=== PATIENT | male | born 1995 | race Caucasian/White ===

== ENCOUNTER 2017-01-08 14:16 | Emergency (ER) | payer OTHER ==
[2017-01-08 15:20] LABS: ABSOLUTE BASOPHILS # (AUTO) 0.1 10^3/uL (0.0-0.2); ABSOLUTE EOSINOPHILS # (AUTO) 0.4 10^3/uL (0.0-0.6); ABSOLUTE LYMPHOCYTES (AUTO) 2.3 10^3/uL (0.5-4.7); ABSOLUTE MONOCYTES (AUTO) 0.6 10^3/uL (0.1-1.4); ABSOLUTE NEUT (AUTO) 4.7 10^3/uL (1.7-8.2); BASOPHILS % (AUTO) 1.2 % (0-2); EOSINOPHILS % (AUTO) 5.4 % (0-6); HEMATOCRIT 48.5 % (37.9-51.0); HEMOGLOBIN 16.7 g/dL (13.5-17.0); HGB HCT DIFFERENCE 1.6; LYMPHOCYTES % (AUTO) 28.2 % (13-45); MEAN CORPUSCULAR HEMOGLOBIN 30.8 pg (27.0-33.4); MEAN CORPUSCULAR HGB CONC 34.4 g/dL (32.0-36.0); MEAN CORPUSCULAR VOLUME 90 fl (80-97); MONOCYTES % (AUTO) 7.1 % (3-13); RED BLOOD COUNT 5.42 10^6/uL (4.35-5.55); RED CELL DISTRIBUTION WIDTH 13.2 % (11.5-14.0); SEGMENTED NEUTROPHILS % (AUTO) 58.1 % (42-78); WHITE BLOOD COUNT 8.1 10^3/uL (4.0-10.5)
[2017-01-08 15:39] LABS: ALANINE AMINOTRANSFERASE 33 U/L (21-72); ALBUMIN 4.4 g/dL (3.5-5.0); ALKALINE PHOSPHATASE 74 U/L (38-126); ANION GAP 14 (5-19); ASPARTATE AMINO TRANSFERASE 15 U/L (17-59); BILIRUBIN,DIRECT 0.3 mg/dL (0.0-0.4); BILIRUBIN,TOTAL 0.9 mg/dL (0.2-1.3); BLOOD UREA NITROGEN 12 mg/dL (7-20); CALCIUM 9.9 mg/dL (8.4-10.2); CARBON DIOXIDE 22 mmol/L (22-30); CHLORIDE 106 mmol/L (98-107); CREATININE RESULT 0.97 mg/dL (0.52-1.25); GLUCOSE 93 mg/dL (75-110); SODIUM 142.4 mmol/L (137-145); TOTAL PROTEIN 7.5 g/dL (6.3-8.2)
[2017-01-08 15:46] LABS: ALCOHOL < 10 mg/dL (NONE DETECTED)
[2017-01-08 17:18] LABS: AMORPHOUS SEDIMENT,URINE TRACE /HPF; APPEARANCE,URINE TURBID; BILIRUBIN,URINE SMALL (NEGATIVE); GLUCOSE, URINE NEGATIVE (NEGATIVE); KETONES,URINE 20 mg/dL (NEGATIVE); LEUKOCYTE ESTERASE,URINE NEGATIVE (NEGATIVE); NITRITE,URINE NEGATIVE (NEGATIVE); PROTEIN,URINE 30 mg/dL (NEGATIVE); URINE SPECIFIC GRAVITY 1.034
[2017-01-08 17:30] LABS: URINE BARBITURATES SCREEN NEGATIVE; URINE METHADONE SCREEN NEGATIVE; URINE OPIATES LOW NEGATIVE; URINE PHENCYCLIDINE SCREEN NEGATIVE
--- NOTE | 2017-01-08 17:50 | PSYCHOLOGICAL NOTE ---
Psych Note - Psych Note Psych Note: pt presents via EMS with reports of suicide attempt after ingesting 5 tylenol extra strength and drinkin 1/2 qt of Captarabella Rai. Suicide note found at resident: "Everyone, If you're reading this, then that means I finallly gave up and took the esasy way out of all of this. I guess we aren'tas invincible as we think we are. I'm so sorry for all this but I'm gonna be going to my brother and I'll be ok I promise that. To Pennie, I'm sorry I wasnt good enough, Im sorry I couldnt be better and most of all, Im sorry for hurting you so deeply. I shouldve been more understanding and shouldve gicen you what you asked for, but now youll be ok without me in the way. It's my time to go now and I wish you all the best. Again, Im so sorry.... P.S. If you get a chance, call Pennie and let her know that I finall left to be with my brother. she'll understand my passcode is [id number]. 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
--- NOTE | 2017-01-08 18:53 | ER Document Report ---
ED General - General Chief Complaint: Psych Problem Stated Complaint: PSYCH EVALUATION Time Seen by Provider: 01/08/17 14:26 Mode of Arrival: Medic Information source: Patient Notes: 21-year-old male presents after a suicide attempt. Patient notes at 11 AM he took approximately 7-8 extra strength Tylenols. Patient denies any fevers or chills. Patient does not remember this episode, denies any previous suicide attempts. Patient did drink half a bottle of Captain Fredi and did write out a suicide note - HPI Onset: Just prior to arrival Onset/Duration: Sudden Quality of pain: No pain Severity: Mild Pain Level: Denies Associated symptoms: None Exacerbated by: Denies Relieved by: Denies Similar symptoms previously: No Recently seen / treated by doctor: No - Related Data Allergies/Adverse Reactions: No Known Allergies Allergy (Unverified 01/08/17 16:42) Past Medical History - Social History Smoking Status: Current Every Day Smoker Cigarette use (# per day): Yes Chew tobacco use (# tins/day): No Smoking Education Provided: No Frequency of alcohol use: Heavy Drug Abuse: None Family History: Reviewed & Not Pertinent Patient has suicidal ideation: Yes Patient has homicidal ideation: No Surgical Hx: Negative - Immunizations Hx Diphtheria, Pertussis, Tetanus Vaccination: Yes Review of Systems - Review of Systems Notes: REVIEW OF SYSTEMS: CONSTITUTIONAL : Denies fever, chills, or sweats. Denies recent illness. EENT: Denies eye, ear, throat, or mouth pain or symptoms. Denies nasal or sinus congestion or discharge. Denies throat, tongue, or mouth swelling or difficulty swallowing. CARDIOVASCULAR: Denies chest pain. Denies palpitations or racing or irregular heart beat. Denies ankle edema. RESPIRATORY: Denies cough, cold, or chest congestion. Denies shortness of breath, difficulty breathing, or wheezing. GASTROINTESTINAL: Denies abdominal pain or distention. Denies nausea, vomiting , or diarrhea. Denies blood in vomitus, stools, or per rectum. Denies black, tarry stools. Denies constipation. GENITOURINARY: Denies difficulty urinating, painful urination, burning, frequency, blood in urine, or discharge. MUSCULOSKELETAL: Denies back or neck pain or stiffness. Denies joint pain or swelling. SKIN: Denies rash, lesions or sores. HEMATOLOGIC : Denies easy bruising or bleeding. LYMPHATIC: Denies swollen, enlarged glands. NEUROLOGICAL: Denies confusion or altered mental status. Denies passing out or loss of consciousness. Denies dizziness or lightheadedness. Denies headache. Denies weakness or paralysis or loss of use of either side. Denies problems with gait or speech. Denies sensory loss, numbness, or tingling. Denies seizures. PSYCHIATRIC: Admits to suicidal ideation ALL OTHER SYSTEMS REVIEWED AND NEGATIVE. Dictation was performed using WIDIP voice recognition software PHYSICAL EXAMINATION: GENERAL: Well-appearing, well-nourished and in no acute distress. HEAD: Atraumatic, normocephalic. EYES: Pupils equal round and reactive to light, extraocular movements intact, sclera anicteric, conjunctiva are normal. ENT: Nares patent, oropharynx clear without exudates. Moist mucous membranes. NECK: Normal range of motion, supple without lymphadenopathy LUNGS: Breath sounds clear to auscultation bilaterally and equal. No wheezes rales or rhonchi. HEART: Regular rate and rhythm without murmurs ABDOMEN: Soft, nontender, nondistended abdomen. No guarding, no rebound. No masses appreciated. Musculoskeletal: Normal range of motion, no pitting or edema. No cyanosis. NEUROLOGICAL: Cranial nerves grossly intact. Normal speech, normal gait. Normal sensory, motor exams PSYCH: Flat affect SKIN: Warm, Dry, normal turgor, no rashes or lesions noted. Physical Exam - Vital signs Vitals: Temp Pulse Resp BP Pulse Ox 98.1 F 73 16 152/88 H 97 01/08/17 15:31 01/08/17 15:31 01/08/17 15:31 01/08/17 15:31 01/08/17 15:31 Course - Re-evaluation Re-evalutation: 01/08/17 18:52 4 hour level was noted to be 30, this is a nonlethal dose however it does appear patient did attempt to overdose. I spoke with Dr. Mccall who will accept patient for transfer Patient medically stable awaiting transport by his unit - Vital Signs Vital signs: Temp Pulse Resp BP Pulse Ox 97.9 F 90 20 124/70 97 01/08/17 18:37 01/08/17 18:37 01/08/17 18:37 01/08/17 18:37 01/08/17 18:37 - Laboratory Result Diagrams: 01/08/17 15:00 01/08/17 15:00 Laboratory results interpreted by me: 01/08/17 01/08/17 15:00 16:00 AST 15 L Urine Protein 30 H Urine Ketones 20 H Urine Bilirubin SMALL H Urine Urobilinogen 2.0 H Salicylates < 1.0 L - EKG Interpretation by Me EKG shows normal: Sinus rhythm, [place], Intervals, QRS Complexes Discharge - Discharge Clinical Impression: Suicidal behavior Qualifiers: Attempted self-injury: without attempted self-injury Qualified Code(s): R46.89 - Other symptoms and signs involving appearance and behavior Poisoning by acetaminophen Qualifiers: Encounter type: initial encounter Injury intent: intentional self-harm Qualified Code(s): T39.1X2A - Poisoning by 4-Aminophenol derivatives, intentional self-harm, initial encounter Condition: Stable Disposition: [facility]
[2017-01-08 19:44] VITALS: BP 134/74
--- NOTE | 2017-01-09 09:24 | EKG REPORT ---
SEVERITY:- BORDERLINE ECG - SINUS RHYTHM PROBABLE LEFT ATRIAL ABNORMALITY : Confirmed by: Briseida Wynn 09-Jan-2017 09:23:31
== END 2017-01-08 20:00 ==
LOC: ER 14:16
DX: T39.1X2A Poisoning by 4-Aminophenol derivatives, intentional self-harm, initial encounter (principal); F17.210 Nicotine dependence, cigarettes, uncomplicated; R46.89 Other symptoms and signs involving appearance and behavior
CPT/HCPCS: 36415; 80053; 80307; 81001; 85025; 93005; 93010; 99285

== ENCOUNTER 2017-09-08 01:43 | Emergency (ER) | payer OTHER ==
[2017-09-08] MEDS ORDERED: LORAZEPAM INJ 2 MG/1 ML VIAL IV ONE (01:56)
[2017-09-08] MEDS ORDERED: NORMAL SALINE 1000 ML 1,000 ML IV ONE (02:04)
--- NOTE | 2017-09-08 02:31 | ER Document Report ---
ED General - General TRAVEL OUTSIDE OF THE [place] IN LAST 30 DAYS: No <ELIN STOKES - Last Filed: 09/08/17 05:52> <KRISTIE JACKSON - Last Filed: 09/08/17 09:37> <CINDI SCHREIBER - Last Filed: 09/08/17 09:50> - General Chief Complaint: Probable Seizure Stated Complaint: POSSIBLE SEIZURE Time Seen by Provider: 09/08/17 01:56 Notes: Patient is a 21-year-old male presents with complaint of possible seizure. Patient was at a bar was emotionally upset and then started having seizure-like activity. His roommates were with him at the bar. They helped him down to the floor. He said he did not hit his head or have any trauma to his head or neck. He said that then placed him on a side called ambulance. When into the room the patient starts asking for his girlfriend "ju". I then told him that she is not here. Patient then starts having a pseudoseizure like activity where he starts shaking all over and and having erratic breathing; however, he is able to talk to me during this episode and when I ask him for stories number he is able to stop all the shaking and then give me her phone number and asked me to call her to see if she will come to the bedside. Patient is obviously having a pseudoseizure due to her emotional distress. Patient's remains to come the bedside and told me that he does not have previous history of seizures. Says he does have a previous history of depression but is not currently been suicidal. Said he has been through a lot recently with the loss of 1 of his parents and also the recent breakup with his girlfriend. I did call his girlfriend. She does inform me that he had recently breakup. She says that she cannot come to the ER but would be happy to talk to him on the phone to help calm him down. Patient's roommates say that he was not involved in any drug abuse. He said the only thing he did tonight was alcohol. He said he did drink a large amount of alcohol. (ELIN STOKES) - Related Data Allergies/Adverse Reactions: No Known Allergies Allergy (Unverified 01/08/17 16:42) Past Medical History - Social History Smoking Status: Unknown if Ever Smoked Frequency of alcohol use: Occasional Drug Abuse: None Family History: Reviewed & Not Pertinent Patient has suicidal ideation: No Patient has homicidal ideation: No Renal/ Medical History: Denies: Hx Peritoneal Dialysis - Immunizations Hx Diphtheria, Pertussis, Tetanus Vaccination: Yes <ELIN STOKES - Last Filed: 09/08/17 05:52> Review of Systems - Review of Systems -: Yes ROS unobtainable due to patient's medical condition - History is limited due to patient having pseudoseizure and the panic attack <ELIN STOKES - Last Filed: 09/08/17 05:52> Physical Exam <ELIN STOKES - Last Filed: 09/08/17 05:52> <KRISTIE JACKSON - Last Filed: 09/08/17 09:37> <CINDI SCHREIBER - Last Filed: 09/08/17 09:50> - Vital signs Vitals: Resp Pulse Ox 26 H 100 09/08/17 01:47 09/08/17 01:47 - Notes Notes: General Appearance: Patient goes from being unresponsive to me being able to wake him up and answer a few questions. Patient becomes upset he starts having erratic type breathing and intermittent shaking of his body is not consistent with a seizure. Patient is able to immediately stop the shaking give me information such as girlfriend's number and and asks me to call her to have her come to the bedside. Vitals: reviewed, See vital signs table. Head: no swelling or tenderness to the head Eyes: PERRL, EOMI, Conjuctiva clear Mouth: No decreasd moisture. No tongue biting. Throat: No tonsillar inflammation, No airway obstruction, No lymphadenopathy Lungs: No wheezing, No rales, No rhonci, No accessory muscle use, good air exchange bilaterally. Heart: Normal rate, Regular rythm, No murmur, no rub Abdomen: Normal BS, soft, No rigidity, No abdominal tenderness, No guarding, no rebound, no abdominal masses, no organomegaly Extremities: strength 5/5 in all extremities, good pulses in all extremities, no swelling or tenderness in the extremities, no edema. Skin: warm, dry, appropriate color, no rash Neuro: Patient has intermittent episodes of tremors with erratic breathing. He is able to answer some questions. Cranial nerves II through XII are intact. Full neuro exam is limited due to the fact that the patient is very panicky at this time and emotionally upset. (ELIN STOKES) Course - Laboratory Result Diagrams: 09/08/17 01:55 09/08/17 01:55 <ELIN STOKES - Last Filed: 09/08/17 05:52> - Laboratory Result Diagrams: 09/08/17 01:55 09/08/17 01:55 <KRISTIE JACKSON - Last Filed: 09/08/17 09:37> - Laboratory Result Diagrams: 09/08/17 01:55 09/08/17 01:55 <CINDI SCHREIBER - Last Filed: 09/08/17 09:50> - Re-evaluation Re-evalutation: 09/08/17 05:52 Patient had another pseudoseizure. Again this jolting thrashing is not consistent with regular seizure. He has panicky type breathing and then will voluntarily throw his chest forward several times. This appears very voluntary. I explained to the girl in the room that this is a result of his anxiety and panic. Approximately hour prior to this episode I did talk to the patient. The girl that is in the room with him came out saying that she felt that he needs to stay to see psychiatry. She says that tonight he told her that he was suicidal. Patient himself says he may set this up he does not remember. Patient currently says is not suicidal but does agree to stay and see psychiatry. Patient is not on involuntary commitment paperwork. I personally do not think the patient is suicidal. Patient is medically stable for psychiatric evaluation. CT scan was obtained the patient does not have a headache and was fully awake and alert and acting appropriately. He has no focal neurologic deficits on exam. He looks well. He had no trauma to his head. His seizures consistent with that of pseudoseizure not consistent with true epilepsy. 09/08/17 05:55 (ELIN STOKES) - Vital Signs Vital signs: Temp Pulse Resp BP Pulse Ox 97.9 F 15 123/90 H 97 09/08/17 06:08 09/08/17 05:01 09/08/17 05:00 09/08/17 05:01 - Laboratory Laboratory results interpreted by me: 09/08/17 01:55 RDW 14.3 H Discharge <ELIN STOKES - Last Filed: 09/08/17 05:52> <KRISTIE JACKSON - Last Filed: 09/08/17 09:37> <CINDI SCHREIBER - Last Filed: 09/08/17 09:50> - Discharge Clinical Impression: Pseudoseizure Depression Qualifiers: Depression Type: unspecified Qualified Code(s): F32.9 - Major depressive disorder, single episode, unspecified Condition: Stable Disposition: HOME, SELF-CARE Additional Instructions: Anxiety The physician feels that some of your health problems are being caused by anxiety. Anxiety affects your health in many ways. Anxiety alone can cause palpitations, sweats, chest pains, abdominal pains, shortness of breath, and headaches. It contributes to ulcer disease, high blood pressure, irritable bowel syndrome, and has been shown to cause flare-ups of many other diseases. Anxiety is not a simple disorder to treat. If the anxiety is due to recent life stresses, you may simply need time to "work through" the changes. If the anxiety is due to an underlying unhappiness with yourself or due to psychiatric disturbance, professional help will be needed. Your physician can refer you for further help if needed. Anti-anxiety medication is occasionally given if the stress is acute or if you are having trouble sleeping. Chronic or frequent use of these medications is not a good idea because the body becomes reliant on it, preventing you from dealing with life's normal stresses. DEPRESSION: Your evaluation reveals that you have mental depression. While symptoms may be vague, they often include disturbance of sleep, fatigue, loss of appetite , and general loss of interest in life. While depression may be a side effect of drugs, or a reaction to a major change in your life, many cases have no known cause. If depression is acute, and related to a major loss in your life, you can expect it to clear completely with time. If you have been depressed a long time , are prone to repeated bouts of depression or low mood, or have been thinking of suicide, get help. Depression can be treated with anti-depressant medication and counselling. Long-term depression will often take a few weeks to clear, even with appropriate medication. Follow-up care is important. FOLLOW-UP CARE: [facility] for continued [facility].~ If you experience worsening or a significant change in your symptoms, notify the physician immediately or return to the Emergency Department at any time for re-evaluation. Referrals: [facility] [Provider Group] - 09/09/17
[2017-09-08 02:35] LABS: ABSOLUTE BASOPHILS # (AUTO) 0.1 10^3/uL (0.0-0.2); ABSOLUTE EOSINOPHILS # (AUTO) 0.1 10^3/uL (0.0-0.6); ABSOLUTE LYMPHOCYTES (AUTO) 2.7 10^3/uL (0.5-4.7); ABSOLUTE MONOCYTES (AUTO) 0.6 10^3/uL (0.1-1.4); ABSOLUTE NEUT (AUTO) 5.4 10^3/uL (1.7-8.2); EOSINOPHILS % (AUTO) 0.9 % (0-6); HEMATOCRIT 46.7 % (37.9-51.0); HEMOGLOBIN 16.2 g/dL (13.5-17.0); LYMPHOCYTES % (AUTO) 30.2 % (13-45); MEAN CORPUSCULAR HEMOGLOBIN 30.5 pg (27.0-33.4); MEAN CORPUSCULAR HGB CONC 34.8 g/dL (32.0-36.0); MEAN CORPUSCULAR VOLUME 88 fl (80-97); MONOCYTES % (AUTO) 6.6 % (3-13); PLATELET COUNT 286 10^3/uL (150-450); RED BLOOD COUNT 5.33 10^6/uL (4.35-5.55); RED CELL DISTRIBUTION WIDTH 14.3 % (11.5-14.0); SEGMENTED NEUTROPHILS % (AUTO) 61.3 % (42-78); TOTAL CELLS COUNTED % (AUTO) 100 %; WHITE BLOOD COUNT 8.9 10^3/uL (4.0-10.5)
[2017-09-08 02:45] LABS: ALCOHOL 118 mg/dL (NONE DETECTED); ANION GAP 16 (5-19); BLOOD UREA NITROGEN 10 mg/dL (7-20); CALCIUM 10.2 mg/dL (8.4-10.2); CARBON DIOXIDE 22 mmol/L (22-30); CHLORIDE 107 mmol/L (98-107); GLUCOSE 93 mg/dL (75-110); POTASSIUM 4.1 mmol/L (3.6-5.0)
[2017-09-08 02:54] LABS: URINE AMPHETAMINES SCREEN NEGATIVE; URINE BARBITURATES SCREEN NEGATIVE; URINE BENZODIAZEPINES SCREEN UNCONFIRMED POSITIVE; URINE COCAINE SCREEN NEGATIVE; URINE MARIJUANA (THC) SCREEN NEGATIVE; URINE METHADONE SCREEN NEGATIVE; URINE PHENCYCLIDINE SCREEN NEGATIVE
[2017-09-08] MEDS ORDERED: LORAZEPAM INJ 2 MG/1 ML VIAL ONE (05:51)
--- NOTE | 2017-09-08 08:48 | PSYCHOLOGICAL NOTE ---
Psych Note - Psych Note Psych Note: Reason for consult: pseudoseizure like activity from Anxiety/Stress Consent Permissions: Friend, Radha, at bedside per patient's request Pt presents to ED with a c/c of seizures via EMS. Per EMS pt was at a bar and was found on the floor having a seizure. Pt had a seizure while in the ambulance. Pt was given 5 mg of dilantin by EMS. Upon arrival pt shaking and mumbling. Pt unable to tell me his location but stated he need "stormy" his ex girlfriend. Patient disclosed he does not remember how he arrived to [facility] however states he is here because "really severe panic attacks." Patient states this never happened before. He denies suicidal ideation. Patient's psychosocial trigger to current event was the recent loss of a parent and breaking up with his girlfriend. Patient admits to previous episode of depression which resulted in a suicide attempt in January. Patient states he was inpatient for approximately 72 hours. He disclosed his attempt was "to drown myself with alcohol." Patient denies following up with outpatient mental health treatment. Patient denies taking any medications. Patient does [facility] Clinician discussed patient's alcohol use: Patient agrees that alcohol plays a part in his emotional events. Patient stated after his inpatient treatment he did not think he needed to continue outpatient treatment; however, agrees it would be "a good idea" to receive outpatient therapeutic services now. Patient is alert and orientated to person, place, time and circumstance. Mood is euthymic with congruent affect as evidenced by smiling and engaging with clinician. Patient denies suicidal and homicidal ideation. Delusions are absent behaviors congruent with intact reality based presentation i.e. organized , linear, rational thinking. Eye contact was well-maintained. Conversational speech was within normal rate, tone and prosody. Intellectual abilities appear to be within the average range. Attention and concentration are good. Insight , judgment, impulse control are fair. [facility]. Patient has not been seen by Mental Health. [facility] Chart Review: Attending evening physician noted Patient then starts having a pseudoseizure like activity where he starts shaking all over and and having erratic breathing; however, he is able to talk to me during this episode and when I ask him for stories number he is able to stop all the shaking and then give me her phone number and asked me to call her to see if she will come to the bedside. Patient is obviously having a pseudoseizure due to her emotional distress. Patient had another pseudoseizure. Again this jolting thrashing is not consistent with regular seizure. He has panicky type breathing and then will voluntarily throw his chest forward several times. This appears very voluntary. I explained to the girl in the room that this is a result of his anxiety and panic. One previous [facility] ED visit 01/08/2017 pt presents via EMS with reports of suicide attempt after ingesting 5 tylenol extra strength and drinkin 1/2 qt of Captain Rai. 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 311 (F32.9) unspecified depressive disorder 291.9 (F10.99) unspecified alcohol related disorder Impression\\plan: Patient is considered psychiatrically clear. Patient does not meet IVC criteria per [place] GS 122C. Patient denies suicidal and homicidal ideation. Patient arrived to [facility] ED under the influence and having pseudoseizure-like activity. Patient had multiple psychosocial stressors. Patient did not follow-up with outpatient mental health treatment after his January 08, 2017 event. Patient stated he felt like he did not need it; however, states that it is probably "a good idea" to receive outpatient therapeutic services now. Patient is urged to maintain sobriety especially given both events surrounded his alcohol use. Patient is recommended to follow-up with outpatient mental health treatment and receive a substance abuse assessment. Patient's friend Radha disclose she will be part of the patient's discharge plan to ensure the patient does not have access to medications or weapons and follows through with his outpatient mental health treatment.Dr. Martini was consulted on the care and management of this patient; attending physician in agreement with recommendations and disposition.
--- NOTE | 2017-09-08 10:18 | ER Document Report ---
Doctor's Note Notes: 09/08/17 10:17 Rounds: Chart reviewed. Patient not interviewed because sleeping. Mental health reports she is ready to be discharged. Vital signs are all normal. Labs were normal except for his blood alcohol of 118. Patient appears to be medically stable for transfer or discharge. Kathy Hinkle MD
[2017-09-08 10:38] VITALS: BP 138/74
== END 2017-09-08 10:38 | disposition home or self-care (01) ==
LOC: ER 01:43
DX: R56.9 Unspecified convulsions (principal); F32.9 Major depressive disorder, single episode, unspecified; F10.99 Alcohol use, unspecified with unspecified alcohol-induced disorder
CPT/HCPCS: 99285; 36415; 80307 ×2; 85025; 80048; J2060; J7030

== ENCOUNTER 2017-09-09 04:24 | Emergency (ER) | payer SELFPAY ==
--- NOTE | 2017-09-09 06:07 | RADIOLOGY REPORT (SQ) ---
EXAM DESCRIPTION: CT HEAD WITHOUT COMPLETED DATE/TIME: 09/09/2017 5:48 am REASON FOR STUDY: seizure vs. pseudo seizure COMPARISON: None. TECHNIQUE: Axial images acquired through the brain without intravenous contrast. Images reviewed wi th bone, brain and subdural windows. Images stored on PACS. All CT scanners at this facility use dose modulation, iterative reconstruction, and/or weight based d osing when appropriate to reduce radiation dose to as low as reasonably achievable (ALARA). [facility]: Dose Right [facility]: CareDose [facility]: Dose Right [facility]: Teradose 4D [facility]: [email or web address] RADIATION DOSE: CT Rad equipment meets quality standard of care and radiation dose reduction techniq ues were employed. CTDIvol: 55.3 mGy. DLP: 996 mGy-cm. mGy. LIMITATIONS: None. FINDINGS: VENTRICLES: Normal size and contour. CEREBRUM: No mass effect. No hemorrhage. No midline shift. Normal loyola/white matter differentiatio n. No evidence for acute territorial infarction. CEREBELLUM: No mass effect. No hemorrhage. No alteration of density. No evidence for acute infarct ion. EXTRAAXIAL SPACES: No fluid collections. ORBITS AND GLOBE: Symmetrical contour of the globes. CALVARIUM: No depressed skull fracture. PARANASAL SINUSES: No air-fluid level. SOFT TISSUES: No hematoma. IMPRESSION: NO ACUTE INTRACRANIAL IMAGING FINDINGS. EVIDENCE OF ACUTE STROKE: NO. COMMENT: Quality ID # [id number]: Final reports with documentation of one or more dose reduction techniques (e.g., Automated exposure control, adjustment of the mA and/or kV according to patient size, use of iterative reconstruction technique) TECHNICAL DOCUMENTATION: JOB ID: [id number]- All Rights Reserved
[2017-09-09 06:29] LABS: ABSOLUTE BASOPHILS # (AUTO) 0.1 10^3/uL (0.0-0.2); ABSOLUTE EOSINOPHILS # (AUTO) 0.2 10^3/uL (0.0-0.6); ABSOLUTE LYMPHOCYTES (AUTO) 2.7 10^3/uL (0.5-4.7); ABSOLUTE MONOCYTES (AUTO) 0.8 10^3/uL (0.1-1.4); ABSOLUTE NEUT (AUTO) 3.4 10^3/uL (1.7-8.2); BASOPHILS % (AUTO) 1.5 % (0-2); EOSINOPHILS % (AUTO) 3.3 % (0-6); HEMATOCRIT 44.2 % (37.9-51.0); HEMOGLOBIN 15.2 g/dL (13.5-17.0); LYMPHOCYTES % (AUTO) 37.3 % (13-45); MEAN CORPUSCULAR HEMOGLOBIN 30.6 pg (27.0-33.4); MEAN CORPUSCULAR HGB CONC 34.4 g/dL (32.0-36.0); MEAN CORPUSCULAR VOLUME 89 fl (80-97); MONOCYTES % (AUTO) 10.5 % (3-13); PLATELET COUNT 254 10^3/uL (150-450); RED BLOOD COUNT 4.98 10^6/uL (4.35-5.55); RED CELL DISTRIBUTION WIDTH 14.6 % (11.5-14.0); SEGMENTED NEUTROPHILS % (AUTO) 47.4 % (42-78); TOTAL CELLS COUNTED % (AUTO) 100 %; WHITE BLOOD COUNT 7.2 10^3/uL (4.0-10.5)
[2017-09-09] MEDS ORDERED: DIPHENHYDRAMINE HCL 50 MG/ML VIAL IV ONE (06:31)
--- NOTE | 2017-09-09 06:31 | ER Document Report ---
ED General - General Chief Complaint: Probable Seizure Stated Complaint: POSSIBLE SEIZURE Time Seen by Provider: 09/09/17 06:09 Mode of Arrival: Ambulatory Information source: Patient Notes: 21-year-old male presents with complaints of seizure-like activity. Patient was seen the night prior when he was drinking and had shaking episodes, family members and friends state the patient's seizures occur when he is very stressed. The note that the patient had gotten off the phone with his ex-and then began shaking TRAVEL OUTSIDE OF THE [place] IN LAST 30 DAYS: No - HPI Onset: Just prior to arrival Onset/Duration: Sudden Quality of pain: No pain Severity: Mild Pain Level: Denies Associated symptoms: Other Exacerbated by: Other - Stress Relieved by: Denies Similar symptoms previously: Yes Recently seen / treated by doctor: Yes - Related Data Allergies/Adverse Reactions: No Known Allergies Allergy (Unverified 01/08/17 16:42) Past Medical History - Social History Smoking Status: Never Smoker Cigarette use (# per day): No Chew tobacco use (# tins/day): No Smoking Education Provided: No Frequency of alcohol use: Social Family History: Reviewed & Not Pertinent Patient has suicidal ideation: No Patient has homicidal ideation: No Renal/ Medical History: Denies: Hx Peritoneal Dialysis - Immunizations Hx Diphtheria, Pertussis, Tetanus Vaccination: Yes Review of Systems - Review of Systems Notes: REVIEW OF SYSTEMS: CONSTITUTIONAL : Denies fever, chills, or sweats. Denies recent illness. EENT: Denies eye, ear, throat, or mouth pain or symptoms. Denies nasal or sinus congestion or discharge. Denies throat, tongue, or mouth swelling or difficulty swallowing. CARDIOVASCULAR: Denies chest pain. Denies palpitations or racing or irregular heart beat. Denies ankle edema. RESPIRATORY: Denies cough, cold, or chest congestion. Denies shortness of breath, difficulty breathing, or wheezing. GASTROINTESTINAL: Denies abdominal pain or distention. Denies nausea, vomiting , or diarrhea. Denies blood in vomitus, stools, or per rectum. Denies black, tarry stools. Denies constipation. GENITOURINARY: Denies difficulty urinating, painful urination, burning, frequency, blood in urine, or discharge. MUSCULOSKELETAL: Denies back or neck pain or stiffness. Denies joint pain or swelling. SKIN: Denies rash, lesions or sores. HEMATOLOGIC : Denies easy bruising or bleeding. LYMPHATIC: Denies swollen, enlarged glands. NEUROLOGICAL: Denies confusion or altered mental status. Denies passing out or loss of consciousness. Denies dizziness or lightheadedness. Denies headache. Denies weakness or paralysis or loss of use of either side. Denies problems with gait or speech. Denies sensory loss, numbness, or tingling. Denies seizures. PSYCHIATRIC: admits to stress ALL OTHER SYSTEMS REVIEWED AND NEGATIVE. Dictation was performed using [employer] voice recognition software PHYSICAL EXAMINATION: GENERAL: Well-appearing, well-nourished and in no acute distress. HEAD: Atraumatic, normocephalic. EYES: Pupils equal round and reactive to light, extraocular movements intact, sclera anicteric, conjunctiva are normal. ENT: Nares patent, oropharynx clear without exudates. Moist mucous membranes. NECK: Normal range of motion, supple without lymphadenopathy LUNGS: Breath sounds clear to auscultation bilaterally and equal. No wheezes rales or rhonchi. HEART: Regular rate and rhythm without murmurs ABDOMEN: Soft, nontender, nondistended abdomen. No guarding, no rebound. No masses appreciated. Musculoskeletal: Normal range of motion, no pitting or edema. No cyanosis. NEUROLOGICAL: Cranial nerves grossly intact. Normal speech, normal gait. Normal sensory, motor exams PSYCH: Normal mood, normal affect. SKIN: Warm, Dry, normal turgor, no rashes or lesions noted. Physical Exam - Vital signs Vitals: Resp Pulse Ox 17 98 09/09/17 04:44 09/09/17 04:44 Course - Re-evaluation Re-evalutation: 09/09/17 06:59 Patient's presentation is extremely benign, pt may have pseudoseizures based on presentation, ct head and labs were all normal. pt will be discharged to follow up with neuro and given seizure precautions . pt is happy with this plan After performing a Medical Screening Examination, I estimate there is LOW risk for ACUTE GLAUCOMA, TEMPORAL ARTERITIS, MENINGITIS, INCRANIAL HEMORRHAGE, or ISCHEMIC STROKE thus I consider the discharge disposition reasonable. I have reevaluated this patient multiple times and no significant life threatening changes are noted. The patient and I have discussed the diagnosis and risks, and we agree with discharging home with close follow-up with the understanding that symptoms and presentations can change. We also discussed returning to the Emergency Department immediately if new or worsening symptoms occur. We have discussed the symptoms which are most concerning (e.g., changing or worsening symptoms, new numbness or weakness, vomiting, fever) that necessitate immediate return. - Vital Signs Vital signs: Temp Pulse Resp BP Pulse Ox 98.4 F 10 L 143/84 H 96 09/09/17 04:49 09/09/17 06:01 09/09/17 06:01 09/09/17 06:01 - Laboratory Result Diagrams: 09/09/17 06:15 09/09/17 06:15 Laboratory results interpreted by me: 09/09/17 06:15 RDW 14.6 H - Diagnostic Test Radiology reviewed: Image reviewed, Reports reviewed - no acute abnormality Discharge - Discharge Clinical Impression: Seizure-like activity, Panic attack as reaction to stress Condition: Stable Disposition: HOME, SELF-CARE Instructions: Panic Attack ([facility]) Referrals: LE CARLTON MD [ACTIVE STAFF] - Follow up tomorrow
[2017-09-09 06:43] LABS: ANION GAP 9 (5-19); BLOOD UREA NITROGEN 15 mg/dL (7-20); CALCIUM 9.3 mg/dL (8.4-10.2); CARBON DIOXIDE 25 mmol/L (22-30); CHLORIDE 107 mmol/L (98-107); GLUCOSE 100 mg/dL (75-110); MAGNESIUM 1.6 mg/dL (1.6-2.3); POTASSIUM 3.7 mmol/L (3.6-5.0); SODIUM 140.5 mmol/L (137-145)
[2017-09-09 06:45] VITALS: BP 143/84
--- NOTE | 2017-09-09 12:37 | EKG REPORT ---
SEVERITY:- ABNORMAL ECG - SINUS RHYTHM NONSPECIFIC INTRAVENTRICULAR CONDUCTION DELAY : Confirmed by: Adan Zee MD 09-Sep-2017 12:36:37
== END 2017-09-09 06:51 | disposition home or self-care (01) ==
LOC: ER 04:24
DX: R56.9 Unspecified convulsions (principal); F43.0 Acute stress reaction
CPT/HCPCS: 93005; 99284; 96374; 36415; 83735; 85025; 80048; 70450; 93010; J1200